=== PATIENT | female | born 2000 | race Caucasian/White ===

== ENCOUNTER 2021-02-28 13:24 | Outpatient (REF) | payer OTHER, SELFPAY ==
[2021-02-28 18:59] LABS: Influenza A PCR NEGATIVE (Negative); Influenza B PCR NEGATIVE (Negative); Resp Syncy Virus RNA Qual PCR NEGATIVE (Negative); SARS COV2 PCR INHOUSE POSITIVE (Negative)
== END 2021-02-28 13:25 | disposition home or self-care (01) ==
LOC: HO.LAB 13:24
PROVIDERS: Visit Provider Hospitalist
DX: Z20.822 Contact with and (suspected) exposure to COVID-19 (principal); J06.9 Acute upper respiratory infection, unspecified
CPT/HCPCS: 0241U

== ENCOUNTER 2022-02-19 21:07 | Emergency (ER) | payer OTHER, SELFPAY ==
[2022-02-19 21:11] VITALS: PULSE 68; RESP 18; TEMP 36.6; O2SAT 100; BMI 22.3
--- NOTE | 2022-02-19 21:38 | ED.WOUNDLAC ---
HPI - Wound/Laceration General Chief Complaint: Wound/Laceration Stated Complaint: Finger lac Time Seen by Provider: 02/19/22 21:32 Source: patient Mode of arrival: ambulatory Limitations: no limitations History of Present Illness HPI narrative: Patient comes to the emergency room accompanied by her mother. Earlier today, patient was using a razor blade and accidentally cut the palmar aspect of her index finger. Bleeding controlled. Patient unsure if she's up-to-date with her Tdap. Related Data Home Medications Medication Instructions Recorded Confirmed No Known Home Meds 02/28/21 02/28/21 Allergies Allergy/AdvReac Type Severity Reaction Status Date / Time No Known Allergies Allergy Verified 02/28/21 12:52 Review of Systems Review of Systems: Constitutional : No Weight loss, No Fever, No Chills, No Night Sweats, No Fatigue, No Malaise ENT/Mouth : No Hearing loss, No Ear Pain, No Nasal Congestion, No Sinus Pain, No Hoarseness, No sore throat, No Rhinorrhea, No Swallowing Difficulty Eyes: No Eye Pain, No Swelling, No Redness, No Foreign Body, No Discharge, No Vision Changes Cardiovascular : No Chest Pain, No SOB, No Dyspnea on Exertion, No Orthopnea, No Edema, No Palpitations Respiratory : No Cough, No Sputum, No Wheezing, No Smoke Exposure, No Dyspnea Gastrointestinal : No Nausea, No Vomiting, No Diarrhea, No Constipation, No abdominal Pain, No Hematochezia, No Melena Genitourinary : no irregular bleeding, No Dysuria, No Urinary Frequency, No Hematuria, No Urinary Incontinence, No Urgency, No Flank Pain, No Urinary Flow Changes, No Hesitancy Musculoskeletal : No joint pain, No Myalgias, No Joint Swelling Skin : Laceration to the left index finger palmar aspect Neuro : No Weakness, No Numbness, No Paresthesias, No Loss of Consciousness, No Dizziness, No Headache Psych : No Anxiety/Panic, No Depression, No SI/HI/AH/VH, No Social Issues, Heme/Lymph: No Bruising, No Bleeding,No Lymphadenopathy Endocrine : No Polyuria, No Polydipsia, No Temperature Intolerance [facility] Social History Social History Advance Directives: No Advance Directives Information Provided: No Physical Exam Vital Signs: Vital Signs: Last Vital Signs Temp 97.8 F 02/19/22 21:11 Pulse 68 02/19/22 21:11 Resp 18 02/19/22 21:11 Pulse Ox 100 02/19/22 21:11 O2 Del Method 02/19/22 21:11 BMI result Body Mass Index 22.3 Const: Other: Appearance: Alert. Oriented X3. No acute distress. Eyes: Pupils equal, round and reactive to light. ENT: Pharynx normal. Neck: Normal inspection. Neck supple. No lymph nodes noted. No crepitus CVS: Normal heart rate and rhythm. Pulses normal. Normal S1 and S2 Respiratory: No respiratory distress. Breath sounds normal. No Wheezing. No rales Abdomen: Soft and nontender. No rigidity. No distention. Skin: Skin warm and dry. There is a 1 cm laceration to the palmar aspect of the index finger by the 1st DIP Extremities: No lower extremity edema. No Lacerations. No Rash Neuro: Oriented X 3. No motor deficit. No sensory deficit. Moving all extremities. No slurred speech. CN 2 through 12 grossly intact Psych: calm, cooperative, normal affect Course Course Course Narrative: pt will be given a Tdap booster 4% lidocaine applied locally before injecting 2% lidocaine Patient received 2 stitches, tolerated well the procedure Medications Administered Discontinued Medications Generic Name Dose Route Start Last Admin Trade Name Freq PRN Reason Stop Dose Admin Diphtheria/Tetanus/Acell Pertussis 0.5 ml 02/19/22 21:36 02/19/22 21:57 Diphth,Pertus(Acell),Tet Adult 0.5 Ml Syringe IM 02/19/22 21:37 0.5 ml .ONCE ONE Administration Lidocaine HCl 1 appl 02/19/22 21:35 02/19/22 21:57 Lidocaine 4 % Cream Kit TOPICAL 02/19/22 21:36 1 appl ONCE ONE Administration Protocol Lidocaine HCl 4 ml 02/19/22 21:38 02/19/22 21:57 Lidocaine Hcl 2% 2 Ml Vial INFILTRATI 02/19/22 21:39 4 ml ONCE ONE Administration Procedures Laceration Laceration 1: Site: hand (Index finger) Side (If applicable): left Size (cm): 1 Description: linear and irregular Depth: simple, single layer Local Anesthetic: lidocaine 2% Amount of anesthesia used (mL): 2 Skin layer closed with: nylon Size (cm): 5-0 Number of sutures: 3 Technique: simple, interrupted Discharge Plan Discharge Clinical Impression: Laceration Patient Disposition: Home, Self-Care Instructions: Finger Laceration (ED) Additional Instructions: Your sutures need to be removed in 7-10 days. You may come to emergency room, or this can be done at your primary care physician's office or urgent care. Please follow-up with your primary care physician tomorrow. If you have any worsening or new symptoms, please return to the emergency room or call 911 Prescriptions: No Action No Known Home Meds
== END 2022-02-19 23:18 | disposition home or self-care (01) ==
PROVIDERS: Emergency Provider Emergency Medicine
DX: S61.211A Laceration without foreign body of left index finger without damage to nail, initial encounter (principal); W27.8XXA Contact with other nonpowered hand tool, initial encounter; Y93.89 Activity, other specified; Y92.019 Unspecified place in single-family (private) house as the place of occurrence of the external cause; Y99.9 Unspecified external cause status; Z23 Encounter for immunization
CPT/HCPCS: 12001; 90471; 90715; 99282; 99284

== ENCOUNTER 2024-08-18 14:25 | Emergency (ER) | payer SELFPAY ==
--- NOTE | ~2024-08-18 | US_ITS ---
CLINICAL HISTORY: rule out torsion right side US pelvis transvaginal with Doppler Comparison: None provided Findings: Transvaginal scanning performed with Doppler. Anteverted uterus is 7.1 cm length. Normal myometrium. Endometrium 1-2 mm thickness. Right ovary 2.7 cm x 2.2 cm x 1.4 cm. Left ovary 2.6 cm x 1.3 cm x 1.6 cm. Normal color Doppler with arterial/venous spectral tracing of both ovaries. Mild simple free fluid in cul-de-sac. IMPRESSION: 1. No evidence of ovarian torsion. This document has been electronically signed by: Terri Bonilla MD on 08/18/2024 17:59:34
[2024-08-18 14:42] VITALS: BP 133/77; PULSE 64; RESP 16; TEMP 36.4; O2SAT 100; BMI 21.6
--- NOTE | 2024-08-18 14:46 | ED.FEMALEGU ---
HPI - Female Genitourinary General Chief complaint: Vaginal Bleeding Stated complaint: cramping, vomitting Time Seen by Provider: 08/18/24 19:46 Source: patient Mode of arrival: ambulatory Limitations: no limitations History of Present Illness ED Provider: Dr. Christi Rosenberg HPI Narrative: Previously healthy 21-year-old female presenting with abdominal cramping, severe bleeding from the vagina since she started her menstrual cycle 3 days ago. Admits to severe abdominal cramps in the suprapubic region that radiates across her abdomen. Pain has been intermittent since it started 3 days ago associated with going through at least 1 pad per hour. Admits that she gets irregular periods since she had an about 12 weeks ago. Was seen at urgent care today and told to come to the emergency department for evaluation. [facility]. She had her medical at urgent care 12 weeks ago. Was told today that she is not and that this had nothing to do with . No syncope or near-syncope. Denies chest pain or difficulty breathing. No lightheadedness with ambulation. Admits to nausea and vomiting, several episodes of diarrhea. No known sick contacts or travel though. No questionable food intake. Related Data Previous Rx's ?Medication ?Instructions ?Recorded prochlorperazine maleate 10 mg 10 mg PO Q8H PRN nausea and 08/18/24 tablet (Compazine) vomiting #10 tabs Allergies Allergy/AdvReac Type Severity Reaction Status Date / Time No Known Allergies Allergy Verified 08/18/24 14:44 Review of Systems Review of Systems: Yes all other systems are reviewed and are negative [facility] Past Medical History Attestation statement: The following information was validated with the patient. Social History Social History Advance Directives: No Advance Directives Information Provided: No Do you have a plan to hurt others: No Plan Physical Exam Vital Signs: Vital Signs: Last Vital Signs Temp 98.4 F 08/18/24 22:34 Pulse 100 08/18/24 22:34 Resp 18 08/18/24 22:34 BP 115/67 08/18/24 22:34 Pulse Ox 95 08/18/24 22:34 O2 Del Method Room Air 08/18/24 14:42 BMI result Body Mass Index 21.6 GENERAL: Ill-Appearing, appears uncomfortable. SKIN: Normal skin color for ethnicity, warm, dry, no rashes noted. HEENT: Normocephalic, atraumatic, no stridor, dry mucous membranes, dentition intact, EOMI, PERRLA. NECK: Soft, supple, full ROM, midline structures nontender, no step-offs, no deformities, no lymphadenopathy. CHEST: Heart regular tachycardia, no murmurs, symmetric chest rise and fall. PULMONARY: Clear to auscultation bilaterally, diminished at the bases, no labored breathing, no wheezes/rhales/rhonchi. ABDOMINAL: Soft, nondistended, diffusely tender to palpation with voluntary guarding, positive bowel sounds in all quadrants. : Deferred. MUSCULOSKELETAL: Normal tone, full range of motion, no deformities, no peripheral edema. NEURO: Alert and oriented x3, CN II through XII intact, equal strength and sensation bilateral upper and lower extremities, no focal neurologic deficits. PSYCHIATRIC: Flat affect, fluid speech, good eye contact and appropriate demeanor. Course Course Course Narrative: RME: Maryann Okeefe PA-C 08/18/2024: 249 pm will defer full ROS and PE to treating provider 21-year-old female here with her mom today with day 3 on her menses with heavy vaginal bleeding in the last hour she has only been through 1 pad though but reports passing clots and feeling lightheaded. She has irregular menses at baseline. Reports feeling nauseous but no vomiting or diarrhea no fevers and no chills. She tried NSAIDs at home which stronger strength might all however this still has not worked she even went to urgent care 1st but due to the severe pain they sent her here. Patient has never had a menses this heavy before. chance unknown. fam hx of ovarian cysts. no fevers Labs and transvaginal u/s ordered. Medications Administered Discontinued Medications Generic Name Dose Route Start Last Admin Trade Name Freq PRN Reason Stop Dose Admin Lactated Ringer's 1,000 mls @ 999 mls/hr 08/18/24 21:02 08/18/24 21:39 Lr IV 08/18/24 22:02 Not Given .Q1H1M ONE Ketorolac Tromethamine 15 mg 08/18/24 21:02 08/18/24 21:36 Ketorolac Tromethamine 15 Mg/Ml Vial IVPUSH 08/18/24 21:03 15 mg ONCE ONE Administration Prochlorperazine Edisylate 10 mg 08/18/24 21:02 08/18/24 21:40 Prochlorperazine Edisylate 10 Mg/2 Ml Vial IVPUSH 08/18/24 21:03 Not Given ONCE ONE Medical Decision Making Medical Decision Making [facility] Narrative: Patient presents today with chief complaint of vaginal bleeding. Differential diagnosis would include anemia, dysfunctional uterine bleeding, and if ectopic , threatened , missed , incomplete , among many others. Patient is not significantly anemic today. Blood work today is reassuring. Patient is feeling dehydrated after several episodes of vomiting and diarrhea. Will medicate with IV fluids, Toradol and Compazine. She already received Zofran from another facility earlier today admits it did not really help with her nausea. Patient refusing Compazine and fluids. States she is ready to go home. Script sent to her pharmacy. Discharged in stable condition. Differential Diagnosis Differential Diagnoses: The differential diagnosis associated with the presentation includes (As above) Admission/Observation Consideration of admission/observation: Escalation of care including admission/observation considered Lab Data [facility] Lab Attestation statement: I reviewed the patient's lab results. 08/18/24 15:23 08/18/24 15:23 Labs: Lab Results 08/18/24 08/18/24 Range/Units 15:23 20:10 WBC 9.8 (4.8-10.8) X10*3/uL RBC 4.22 (4.20-5.50) X10*6/uL Hgb 13.3 (12.0-16.0) g/dl Hct 38.3 (37.0-47.0) % MCV 90.8 (80.0-98.0) fL MCH 31.5 (27.0-33.0) pg MCHC 34.7 (31.0-35.0) g/dl RDW 12.9 (11.0-16.0) % Plt Count 218 (160-400) X10*3/uL MPV 9.9 (9.4-12.3) fL Immature Gran % (Auto) 0.5 H (0.0-0.4) % Neut % (Auto) 90.1 H (45-73) % Lymph % (Auto) 7.0 L (20-40) % [place] % (Auto) 2.2 (2-11) % Eos % (Auto) 0.0 (0-4) % Baso % (Auto) 0.2 (0-2) % Lymph # (Auto) 0.7 L (1.2-4.9) X10*3/uL [place] # (Auto) 0.2 (0.1-1.2) X10*3/uL Eos # (Auto) 0.0 (0.0-0.4) X10*3/uL Baso # (Auto) 0.0 (0.0-0.2) X10*3/uL Abs Immat Gran (auto) 0.05 H (0.00-0.03) X10*3/uL Absolute Neuts (auto) 8.8 H (2.0-8.3) x10*3/uL Absolute Nucleated RBC 0.000 (0.0-0.012) X10*3/uL Nucleated RBC % (auto) 0.0 (0.0-0.2) /100WBC Smear Tech's Comments VERIFIED PT 12.6 H (10.9-12.4) SEC INR 1.1 (0.9-1.1) Sodium 140 (135-145) mmol/L Potassium 3.8 (3.3-5.1) mmol/L Chloride 105 (96-108) mmol/L Carbon Dioxide 23 (22-29) mmol/L Anion Gap 16 (12-20) BUN 11 (9-16) mg/dL Creatinine 0.67 (0.5-1.4) mg/dL Estim Creat Clear Calc 120.4 Estimated GFR > 60 Fasting Glucose 151 H (60-99) mg/dL Calcium 10.0 (8.4-10.2) mg/dL Total Bilirubin 0.7 (0.0-1.0) mg/dL AST 21 (5-31) U/L ALT 16 (0-31) U/L Alkaline Phosphatase 62 (39-117) U/L Total Protein 7.8 (6.5-8.0) g/dL Albumin 4.8 (3.5-5.0) g/dL Urine Color Yellow Urine Appearance Clear Urine pH >= 9.0 (5.0-9.0) Ur Specific [place] >= 1.030 H (1.005-1.025) Urine Protein 30 (1+) H (Neg-Trace) mg/dL Urine Glucose (UA) Negative (Negative) mg/dL Urine Ketones 40 (Negative) mg/dL Urine Blood Large (3+) H (Negative) Urine Nitrite Negative (Negative) Ur Leukocyte Esterase Negative (Negative) Urine RBC >20 H (0-2) /HPF Urine WBC 0-5 (0-5) /HPF Ur Squamous Epith Cells 3-5 (0-2) /HPF Urine Bacteria None Seen (None Seen) Hyaline Casts 0-2 (0-2) /LPF Urine Test NEGATIVE (NEGATIVE) Prescription Management I considered prescription management with: Pain Medication and Other (Antiemetics) Discharge Plan Discharge Clinical Impression: Menometrorrhagia, Viral gastroenteritis Patient Disposition: Home, Self-Care Instructions: Menorrhagia (ED), Enteritis (ED) Additional Instructions: Return to the emergency department with any new or worsening symptoms including: Worsening bleeding, passing out, fevers greater than 100?, inability to tolerate food or drink despite medication, any new symptom that concerns you. Call 911 with any medical emergency. Prescriptions: New prochlorperazine maleate [Compazine] 10 mg tablet 10 mg PO Q8H PRN (Reason: nausea and vomiting) Qty: 10 0RF Interventions: ED Discharge Assessment Last Done: 08/18/24 22:34 Discharge Date/Time: 08/18/24 22:34 Print Language: Indonesian
[2024-08-18 15:31] LABS: Basophils Percent Auto 0.2 % (0-2); Hematocrit 38.3 % (37.0-47.0); Hemoglobin 13.3 g/dl (12.0-16.0); Imm Gran Abs Auto 0.05 X10*3/uL (0.00-0.03); Imm Gran Pct Auto 0.5 % (0.0-0.4); Lymphocytes Absolute Auto 0.7 X10*3/uL (1.2-4.9); MANUAL DIFF FLAG SCAN; Mean Corpuscular HGB Conc 34.7 g/dl (31.0-35.0); Mean Corpuscular Hemoglobin 31.5 pg (27.0-33.0); Mean Corpuscular Volume 90.8 fL (80.0-98.0); Mean Platelet Volume 9.9 fL (9.4-12.3); Monocytes Absolute Auto 0.2 X10*3/uL (0.1-1.2); Monocytes Percent Auto 2.2 % (2-11); Neutrophils Absolute Auto 8.8 x10*3/uL (2.0-8.3); Neutrophils Percent Auto 90.1 % (45-73); Platelet Count 218 X10*3/uL (160-400); Red Blood Count 4.22 X10*6/uL (4.20-5.50); Red Cell Distribution Width 12.9 % (11.0-16.0); SCAN SMEAR FLAG 1; White Blood Count 9.8 X10*3/uL (4.8-10.8)
[2024-08-18 15:41] LABS: INTERNATIONAL NORM RATIO 1.1 (0.9-1.1); Prothrombin Time 12.6 SEC (10.9-12.4)
[2024-08-18 15:56] LABS: SLIDE REVIEW VERIFIED
[2024-08-18 15:57] LABS: Alanine Aminotransferase 16 U/L (0-31); Albumin Level 4.8 g/dL (3.5-5.0); Alkaline Phosphatase 62 U/L (39-117); Anion Gap 16 (12-20); Aspartate Amino Transferase 21 U/L (5-31); Bilirubin Total 0.7 mg/dL (0.0-1.0); Blood Urea Nitrogen 11 mg/dL (9-16); Carbon Dioxide 23 mmol/L (22-29); Chloride 105 mmol/L (96-108); Creatinine Clr Calc Pharmacy 120.4; Estimated Glomerular Filt Rate > 60; Glucose Fasting 151 mg/dL (60-99); Potassium 3.8 mmol/L (3.3-5.1); Sodium 140 mmol/L (135-145); Total Protein 7.8 g/dL (6.5-8.0)
[2024-08-18 19:21] VITALS: BP 115/67; PULSE 100; RESP 18; TEMP 36.9; O2SAT 95
[2024-08-18 20:17] LABS: Appearance Urine Clear; Color Urine Yellow; Glucose Urine UA Negative (Negative); Leukocyte Esterase Urine Negative (Negative); Nitrite Urine Negative (Negative); PH >= 9.0 (5.0-9.0); Specific Gravity - Urine >= 1.030 (1.005-1.025); UMIC TRIGGER UACC YES; Urine Blood Large (3+) (Negative); Urine Ketones 40 mg/dL (Negative); Urine Protein 30 (1+) mg/dL (Neg-Trace)
[2024-08-18 20:19] LABS: UPreg QC Valid YES; Urine Pregnancy NEGATIVE (NEGATIVE)
[2024-08-18 20:21] LABS: Bacteria Urine None Seen (None Seen); Hyaline Casts Urine 0-2 /LPF (0-2); RBC Urine >20 /HPF (0-2); WBC Urine 0-5 /HPF (0-5)
[2024-08-18] MEDS: Ketorolac Tromethamine 15 MG/ML VIAL IVPUSH (21:36)
--- NOTE | 2024-08-18 21:52 | PC.NURSE ---
PT did not want to confirm pharmacy for provider to send prescription, pt crying hysterically saying she just wants to leave I've been here for 6 hours this is ridiculous! The vest front presser told me they were watching my chart and they weren't doing anything, why are they making me provide a urine if i'm going to sit there forever to hold it!
--- NOTE | 2024-08-18 21:54 | PC.NURSE ---
This Nurse went to obtain IV access in pt, 20G IV placed in right AC patient tolerated it well. When this nurse explained the infusion of IVF 0.9% NS pt started hysterically crying and said I don't have time to wait that long i have been here for 6 hours this is ridiculous i just spent all my money and day being here. PT stated she wanted to leave this nurse spoke to the provider, provider aware of patient leaving 20G IV in right AC removed before patient leaving.
[2024-08-18 22:34] VITALS: BP 115/67; PULSE 100; RESP 18; TEMP 36.9; O2SAT 95
== END 2024-08-18 22:34 | disposition home or self-care (01) ==
PROVIDERS: Physician Assistant Medical; Emergency Provider Emergency Medicine
DX: N92.1 Excessive and frequent menstruation with irregular cycle (principal); A08.4 Viral intestinal infection, unspecified; R10.30 Lower abdominal pain, unspecified
CPT/HCPCS: 36415; 76830; 76856; 80053; 81001; 81025; 85025; 85610; 96374; 99283; 99284; J1885

== ENCOUNTER → 2024-08-18 14:47 | Outpatient (BNV) | payer OTHER, SELFPAY | PROVIDERS: Visit Provider Specialist | DX: N92.1 Excessive and frequent menstruation with irregular cycle (principal) | CPT/HCPCS: 76830; 76856; 93975 ==